=== PATIENT | female | born 1980 | race African-American/Black ===

== ENCOUNTER → 2018-03-19 14:36 | Outpatient (CLI) | payer BC | END | disposition home or self-care (01) | LOC: D.LABREF 14:36 | DX: M79.1 Myalgia (principal) ==

== ENCOUNTER → 2018-03-20 10:33 | Outpatient (CLI) | payer BC ==
[2018-03-20 12:21] LABS: ERYTHROCYTE SEDIMENTATION RATE 1 mm/hr (0-20)
== END | disposition home or self-care (01) ==
LOC: D.LABREF 10:33
PROVIDERS: Student in an Organized Health Care Education/Training Program
DX: M79.1 Myalgia (principal)